=== PATIENT | male | born 1995 ===

== ENCOUNTER 2021-11-23 21:26 | Emergency (ER) | payer OTHER, SELFPAY ==
[2021-11-23 21:35] VITALS: BP 135/80; PULSE 96; RESP 20; TEMP 37.4; O2SAT 97; BMI 28.7
[2021-11-23 21:57] LABS: COVID19 -Nasal RAPID POSITIVE (Negative)
--- NOTE | 2021-11-23 22:07 | ED_ITS ---
HPI - General Adult General Chief complaint: Upper Respiratory Symptoms Stated complaint: nausea/migraine/fever x1 day Time Seen by Provider: 11/23/21 21:43 Source: patient Mode of arrival: Ambulatory History of Present Illness HPI narrative: Patient is a 26-year-old male. Is otherwise healthy. Is active [employer]. Is vaccinated against COVID-19. Here for evaluation of less than 1 day of fever, headache, nausea, shortness of breath, cough. Has not tried anything for symptoms prior to arrival. Related Data Allergies Allergy/AdvReac Type Severity Reaction Status Date / Time No Known Drug Allergies Allergy Verified 11/23/21 21:34 Review of Systems Constitutional Constitutional: Reports system reviewed and no additional complaints, except as documented Cardiovascular Cardiovascular: Reports system reviewed and no additional complaints, except as documented Respiratory Respiratory: Reports system reviewed and no additional complaints, except as documented Gastrointestinal Gastrointestinal: Reports system reviewed and no additional complaints, except as documented Integumentary/Breasts Skin/Breast: Reports system reviewed and no additional complaints, except as documented Allergic/Immunologic Allergic/Immunologic: Reports system reviewed and no additional complaints, except as documented Patient History Medical History Healthy adult Social History Smoking Status: Current every day smoker Smoking Status: Current every day smoker tobacco type: vaping alcohol intake frequency: a few times a week Substance Use Type: does not use Exam Initial Vital Signs Initial Vital Signs: Vital Signs Temperature 99.3 F 11/23/21 21:35 Pulse Rate 96 H 11/23/21 21:35 Respiratory Rate 20 11/23/21 21:35 Blood Pressure 135/80 11/23/21 21:35 Pulse Oximetry 97 11/23/21 21:35 Oxygen Delivery Method 11/23/21 21:35 HENMT Head: normal to inspection and normocephalic Resp Effort & Inspection: normal respiratory effort Auscultation: clear to auscultation bilaterally Cardio Rate: regular rate Rhythm: regular rhythm Skin General: no rashes or lesions noted Neuro General: patient alert, patient awake and moves all extremities Extrem General: normal to inspection Course Orders Ordered: ED Orders 11/23/21 21:30 COVID19 -Nasal RAPID/Pre-Proc Stat Discontinued Medications Acetaminophen (Acetaminophen 325 Mg Tablet) 650 mg PO NOW ONE Stop: 11/23/21 22:10 Ondansetron HCl (Ondansetron 4 Mg Odt Prepack) 1 bottle MISC SEEINSTR ONE Stop: 11/23/21 22:10 Ondansetron HCl (Ondansetron 4 Mg Odt) 4 mg SL NOW ONE Stop: 11/23/21 22:10 Vital Signs Vital signs: Vital Signs - 8 hr 11/23/21 21:35 Temperature 99.3 F Pulse Rate 96 H Respiratory Rate 20 Blood Pressure 135/80 Pulse Oximetry 97 Oxygen Delivery Method Room Air Medical Decision Making Lab Data Labs: Lab Results 11/23/21 Range/Units 21:30 SARS-CoV-2 (PCR) Positive H (Negative) MDM Narrative Medical decision making narrative: Patient is COVID positive. He is afebrile. Not hypoxic. Not tachypneic. Lungs are clear. His positive COVID status does explain his presenting symptoms today. Discussed with him that unfortunately we can only provide symptom control. He was given return precautions and follow-up instructions. He expressed understanding and agreement. Discharge Plan Departure Patient Disposition: Home Clinical Impression: COVID-19 Instructions: DI for COVID-19 (Suspected or Confirmed ) Activity Restrictions/Additional Instructions: Please follow current CDC guidelines with regard to quarantine because of your COVID-19 positive status. You can take Tylenol for any headaches or body aches. Be sure to increase your fluid intake. Use the nausea medication as needed. It is important that you let your command know that you are positive for COVID. Return to the emergency department for any worsening symptoms. Stand Alone Forms: Work Release Note
[2021-11-23] MEDS: ONDANSETRON 4 MG ODT SL (22:25)
[2021-11-23] MEDS: ONDANSETRON 4 MG ODT PREPACK 1 BOTTLE MISC (22:25)
[2021-11-23] MEDS: ACETAMINOPHEN 325 MG TABLET 650 MG PO (22:25)
[2021-11-23 22:32] VITALS: BP 127/68; PULSE 82; RESP 24; O2SAT 95
== END 2021-11-23 22:32 | disposition home or self-care (01) ==
PROVIDERS: Emergency Provider Emergency Medicine
DX: U07.1 COVID-19 (principal)
CPT/HCPCS: 36415; 87635; 99283; C9803